=== PATIENT | female | born 1970 | race Native Hawaiian/Other Pacific Islander ===

== ENCOUNTER 2022-09-23 06:11 | Emergency (ER) | payer OTHER ==
[~2022-09-23] VITALS: Ht 165.1 cm; Wt 59.0 kg
[2022-09-23 07:04] LABS: PLATELET COUNT 303 K/uL (152-353)
[2022-09-23 07:24] LABS: POTASSIUM 3.8 mmol/L (3.6-5.2)
[2022-09-23 08:10] VITALS: BP 110/58; TEMP 98.1
== END 2022-09-23 08:10 | disposition home or self-care (01) ==
LOC: ED 06:11
PROVIDERS: Emergency Medicine Emergency Medical Services
DX: M54.50 Low back pain, unspecified (principal); F17.200 Nicotine dependence, unspecified, uncomplicated; R10.9 Unspecified abdominal pain
CPT/HCPCS: 36415; 80048; 80307; 81002; 85027; 96374; 99284; J1885